=== PATIENT | male | born 1985 | race Caucasian/White ===

== ENCOUNTER 2016-09-09 22:24 | Emergency (ER) | payer BC | END 2016-09-10 00:03 | disposition left against medical advice (07) | LOC: ER1 22:24 | DX: Z53.21 Procedure and treatment not carried out due to patient leaving prior to being seen by health care provider (principal) | CPT/HCPCS: 93005 ==

== ENCOUNTER → 2016-09-15 | Outpatient (CLI) | payer OTHER | LOC: HEART 5 14:00 | DX: R55 Syncope and collapse (principal) ==

== ENCOUNTER → 2016-09-16 | Outpatient (CLI) | payer OTHER ==
[2016-09-16 15:48] LABS: HEMOGLOBIN 16.9 gm/dl (14.0-17.5); RED BLOOD COUNT 5.5 M/UL (4.20-5.50); WHITE BLOOD COUNT 10.9 K/UL (4.5-11.0)
[2016-09-16 16:25] LABS: BUN/CREATININE RATIO 13 (0-10)
== END ==
LOC: LAB 15:17
PROVIDERS: Physician Assistant
DX: R55 Syncope and collapse (principal)
CPT/HCPCS: 36415; 80053; 82607; 83036; 85025

== ENCOUNTER → 2016-10-10 | Outpatient (CLI) | payer OTHER | LOC: HEART 5 09:56 | DX: R55 Syncope and collapse (principal); I49.5 Sick sinus syndrome | CPT/HCPCS: 93306 ==

== ENCOUNTER → 2016-10-22 | Outpatient (CLI) | payer OTHER | LOC: RT 12:08 | DX: R55 Syncope and collapse (principal) ==

== ENCOUNTER 2020-10-09 16:14 | Emergency (ER) | payer OTHER ==
[~2020-10-09 16:14] MED LIST: FLEXERIL 10 MG10 MG PO; PREDNISONE 50 M50 MG PO
[2020-10-09 16:37] LABS: HEMOGLOBIN 15.9 gm/dl (14.0-17.5); RED BLOOD COUNT 5.15 M/UL (4.20-5.50)
[2020-10-09 17:02] LABS: BUN/CREATININE RATIO 12 (0-10)
[2020-11-13] MEDS ORDERED: OMEPRAZOLE40 MG PO (10:04)
[2020-11-13] MEDS ORDERED: LOSARTAN POTASS25 MG PO (10:05)
[2020-11-13] MEDS ORDERED: OXYCODONE HCL5 MG PO (10:06)
== END 2020-10-09 17:39 | disposition home or self-care (01) ==
LOC: ER1 16:14
PROVIDERS: Emergency Medicine
DX: R07.9 Chest pain, unspecified (principal); I10 Essential (primary) hypertension; K21.9 Gastro-esophageal reflux disease without esophagitis; F17.290 Nicotine dependence, other tobacco product, uncomplicated
CPT/HCPCS: 71046; 80053; 82550; 82553; 83874; 84484; 85025; 93005; 99285

== ENCOUNTER 2020-11-06 17:06 | Emergency (ER) | payer OTHER ==
[2020-11-06 17:40] LABS: HEMOGLOBIN 15.8 gm/dl (14.0-17.5); RED BLOOD COUNT 5.22 M/UL (4.20-5.50); WHITE BLOOD COUNT 11.4 K/UL (4.5-11.0)
[2020-11-06 18:07] LABS: BUN/CREATININE RATIO 11 (0-10)
[2020-11-06] MEDS ORDERED: ZOFRAN4 MG PO (23:30)
[2020-11-06] MEDS ORDERED: FLORASTOR250 MG PO (23:30)
[2020-11-06] MEDS ORDERED: BENTYL 20MG TAB20 MG PO (23:30)
[2020-11-08 10:16] LABS: HBSAG SCREEN Negative (Negative); HEP A AB, IGM Negative (Negative); HEP B CORE AB, IGM Negative (Negative); HEP C VIRUS AB <0.1 (0.0-0.9)
[2020-11-13] MEDS ORDERED: OMEPRAZOLE40 MG PO (10:04)
[2020-11-13] MEDS ORDERED: LOSARTAN POTASS25 MG PO (10:05)
[2020-11-13] MEDS ORDERED: OXYCODONE HCL5 MG PO (10:06)
== END 2020-11-06 23:55 | disposition home or self-care (01) ==
LOC: ER1 17:06
PROVIDERS: Family Medicine; Physician Assistant Medical
DX: R16.0 Hepatomegaly, not elsewhere classified (principal); R91.1 Solitary pulmonary nodule; K21.9 Gastro-esophageal reflux disease without esophagitis; I10 Essential (primary) hypertension; F17.290 Nicotine dependence, other tobacco product, uncomplicated; Z79.899 Other long term (current) drug therapy
CPT/HCPCS: 71045; 80053; 80074; 80307; 81001; 82150; 82550; 82553; 83690; 83874; 84484; 85025; 85379; 93005; 96374; 99284; G0480; J2405; J7030; Q9967

== ENCOUNTER → 2020-11-09 | Outpatient (CLI) | payer OTHER ==
[~2020-11-09] MED LIST changes: +BENTYL 20MG TAB20 MG PO; +FLORASTOR250 MG PO; +LOSARTAN POTASS25 MG PO; +OMEPRAZOLE40 MG PO; +OXYCODONE HCL5 MG PO; +ZOFRAN4 MG PO
[2020-11-09 13:40] LABS: BUN/CREATININE RATIO 14 (0-10)
== END ==
LOC: CT 12:36
PROVIDERS: Internal Medicine
DX: R16.0 Hepatomegaly, not elsewhere classified (principal); R59.9 Enlarged lymph nodes, unspecified; R91.1 Solitary pulmonary nodule
CPT/HCPCS: 36415; 80053; Q9967

== ENCOUNTER → 2020-11-13 | Outpatient (CLI) | payer OTHER | LOC: US 09:18 → OPSV 09:18 → US 11:00 | DX: C78.7 Secondary malignant neoplasm of liver and intrahepatic bile duct (principal); R59.9 Enlarged lymph nodes, unspecified; R16.0 Hepatomegaly, not elsewhere classified; R91.1 Solitary pulmonary nodule; Z79.891 Long term (current) use of opiate analgesic; Z79.899 Other long term (current) drug therapy; Z20.822 Contact with and (suspected) exposure to COVID-19 | CPT/HCPCS: 76705; 76942; U0002 ==

== ENCOUNTER 2020-12-06 20:59 | Emergency (ER) | payer OTHER | END 2020-12-06 21:01 | disposition left against medical advice (07) | LOC: ER1 20:59 | DX: Z53.21 Procedure and treatment not carried out due to patient leaving prior to being seen by health care provider (principal) ==